=== PATIENT | female | born 1965 | race African-American/Black ===

== ENCOUNTER → 2016-12-18 | Outpatient (CLI) | payer BC ==
[2016-04-19 14:40] VITALS: BP 137/90
--- NOTE | 2016-12-18 14:25 | RAD ---
DATE: 12/18/2016. EXAM: DIGITAL SCREEN BILAT W/CAD HISTORY: Screening. COMPARISON: 06/22/2015. This study was interpreted with the benefit of Computerized Aided Detection (CAD). FINDINGS: Both breasts are heterogeneously dense, limiting the sensitivity of mammography. Numerous benign calcifications are scattered throughout both breasts. No dominant mass or malignant appearing microcalcifications are seen. The axillae are unremarkable. IMPRESSION: No mammographic features suspicious for malignancy. BI-RADS CATEGORY: 2 BENIGN FINDING(S) RECOMMENDED FOLLOW-UP: 12M 12 MONTH FOLLOW-UP PQRS compliance statement: Patient information was entered into a reminder system with a target due date for the next mammogram. Mammography is a sensitive method for finding small breast cancers, but it does not detect them all and is not a substitute for careful clinical examination. A negative mammogram does not negate a clinically suspicious finding and should not result in delay in biopsying a clinically suspicious abnormality. "Our facility is accredited by the [employer] Mammography [employer]."
== END | disposition home or self-care (01) ==
LOC: MAMMO 13:58
PROVIDERS: ATTEND Internal Medicine
DX: Z12.31 Encounter for screening mammogram for malignant neoplasm of breast (principal)
CPT/HCPCS: G0202; 77067

== ENCOUNTER → 2018-12-01 | Outpatient (CLI) | payer BC ==
[2016-04-19 14:40] VITALS: BP 137/90
--- NOTE | 2018-12-01 16:09 | RAD ---
DATE: 12/01/2018 EXAM: MAMMO JONAS SCREENING BILATERAL HISTORY: Routine screening COMPARISON: 10/18/2017 This study was interpreted with the benefit of Computerized Aided Detection (CAD). Breast Density: DENSE The breast parenchyma is dense, which could reduce the sensitivity of mammography. Breast parenchyma level density D. FINDINGS: 2-D and 3-D tomosynthesis imaging was performed in CC and MLO projections. No new or enlarging breast densities are seen. Scattered benign type calcifications are again noted. No suspicious type microcalcifications have developed. IMPRESSION: Stable mammograms without evidence of malignancy. BI-RADS CATEGORY: 2 BENIGN FINDING(S) RECOMMENDED FOLLOW-UP: 12M 12 MONTH FOLLOW-UP PQRS compliance statement: Patient information was entered into a reminder system with a target due date for the next mammogram. Mammography is a sensitive method for finding small breast cancers, but it does not detect them all and is not a substitute for careful clinical examination. A negative mammogram does not negate a clinically suspicious finding and should not result in delay in biopsying a clinically suspicious abnormality. "Our facility is accredited by the [employer] Mammography [employer]."
== END | disposition home or self-care (01) ==
LOC: MAMMO 14:45
PROVIDERS: ATTEND Internal Medicine
DX: Z12.31 Encounter for screening mammogram for malignant neoplasm of breast (principal)
CPT/HCPCS: 77063; 77067

== ENCOUNTER 2019-01-07 10:02 | Emergency (ER) | payer OTHER, BC ==
[~2019-01-07] VITALS: Ht 175.3 cm; Wt 90.7 kg
--- NOTE | 2019-01-07 10:36 | PHYS DOC ---
Past Medical History Past Medical History: Other Additional Past Medical Histor: PAGETS DISEASE OF THE SKULL Past Surgical History: Hysterectomy Alcohol Use: None Drug Use: None Adult General Chief Complaint Chief Complaint: SHOULDER INJURY HPI HPI Patient is a 53 year old female presenting with shoulder injury. She was reaching back to grab a gas pump and she felt a pop and had severe pain radius to the trapezius sharp worse with movement symptoms are getting worse with time Review of Systems Review of Systems Negative for chest pain negative for abdominal pain negative for other symptoms Current Medications Current Medications Current Medications Medications (Trade) Dose Ordered Sig/Christy Start Time Stop Time Status Last Admin Dose Admin Acetaminophen/ Hydrocodone Bitart (Lortab 5/325) 2 tab 1X ONCE 01/07/19 10:45 01/07/19 10:46 DC 01/07/19 10:42 2 TAB Ketorolac Tromethamine (Toradol Im) 30 mg 1X ONCE 01/07/19 10:45 01/07/19 10:46 DC 01/07/19 10:41 30 MG Allergies Allergies Allergies Coded Allergies Type Severity Reaction Last Updated Verified No Known Drug Allergies 01/07/19 No Physical Exam Physical Exam Constitutional: Well developed, well nourished, no acute distress, non-toxic appearance. [] HENT: Normocephalic, atraumatic, bilateral external ears normal, oropharynx moist, no oral exudates, nose normal. [] Eyes: PERRLA, EOMI, conjunctiva normal, no discharge. [] Pulmonary: Normal respiratory effort no increased work of breathing no obvious chest wall trauma Abdomen: Bowel sounds normal, soft, no tenderness, no masses, no pulsatile masses. [] Skin: Warm, dry, no erythema, no rash. [] Back: No tenderness, no CVA tenderness. [] Extremities: There is tenderness to palpation noted over the right trapezius and the right shoulder range of motion is somewhat limited secondary to pain distal function is intact Neurologic: Alert and oriented X 3, normal motor function, normal sensory function, no focal deficits noted. [] Psychologic: Affect normal, judgement normal, mood normal. [] Current Patient Data Vital Signs Vital Signs Date Time Temp Pulse Resp B/P (MAP) Pulse Ox O2 Delivery O2 Flow Rate FiO2 01/07/19 11:24 89 18 162/93 (116) 01/07/19 10:08 98.7 97 Room Air 98.7 EKG EKG [] Radiology/Procedures Radiology/Procedures [] Impressions: Impression: Acromioclavicular joint degenerative changes are present. No suspicious acute process. Electronically signed by: Clifford Fletcher MD (01/07/2019 11:14 AM) [id number] DICTATED and SIGNED BY: CLIFFORD FLETCHER MD DATE: 01/07/19 1113 Course & Med Decision Making Course & Med Decision Making Pertinent Labs and Imaging studies reviewed. 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 Departure Departure Impression: Primary Impression: Shoulder pain Disposition: 01 HOME, SELF-CARE Condition: STABLE Referrals: ROSHAN PITTMAN MD (PCP) Scripts Hydrocodone/Apap 5-325 (NORCO 5-325 TABLET) 1 Each Tablet 1-2 EACH PO PRN Q6HRS PRN for PAIN, #15 as needed for pain Prov: KRISTA AWAD MD 01/07/19 KRISTA AWAD MD Jan 07, 2019 10:36
[2019-01-07] MEDS ORDERED: HYDROcodone/APAP 5/325MG 1 TAB TABLET PO ONE (10:45)
[2019-01-07] MEDS ORDERED: KETOROLAC 60 MG/2 ML VIAL. IM ONE (10:45)
[2019-01-07] MEDS ORDERED: HYDR-3164 PO (10:55)
--- NOTE | 2019-01-07 11:17 | RAD ---
Examination: SHOULDER 2+V RIGHT History: PT STATES WAS PUTTING GAS IN BUS AND FELT POP, HAVING SEVERE ANTERIOR SHOULDER PAIN. Comparison/Correlation: None Findings: Total 3 images of the right shoulder were obtained. Acromioclavicular joint degenerative change with spurring and narrowing is present. Glenohumeral joint is unremarkable. No fracture or bony destruction. Right lung field is unremarkable. Visualized right ribs are unremarkable. Soft tissues are unremarkable. Impression: Acromioclavicular joint degenerative changes are present. No suspicious acute process. Electronically signed by: Clifford Keith MD (01/07/2019 11:14 AM) [id number]
[2019-01-07 11:24] VITALS: BP 162/93
== END 2019-01-07 11:26 | disposition home or self-care (01) ==
LOC: ER 10:02
DX: M25.511 Pain in right shoulder (principal); X50.9XXA Other and unspecified overexertion or strenuous movements or postures, initial encounter; Y93.89 Activity, other specified; Y92.89 Other specified places as the place of occurrence of the external cause; Y99.8 Other external cause status
CPT/HCPCS: 73030; 96372; 99283; J1885

== ENCOUNTER → 2019-06-11 | Outpatient (CLI) | payer BC ==
[~2019-06-11] MED LIST: HYDR-3164 PO; IOHEXOL 300 MG/ML 100ML VIAL. IV ONE
--- NOTE | 2019-06-11 10:51 | RAD ---
CT HEAD WO/W CONTRAST History: Paget's disease. Comparison: May 18, 2016. Technique: Precontrast and postcontrast images were obtained of the head. Coronal reconstructions were performed. 75 mL Omnipaque 300 IV contrast was administered. Exposure: One or more of the following individualized dose reduction techniques were utilized for this examination: 1. Automated exposure control 2. Adjustment of the mA and/or kV according to patient size 3. Use of iterative reconstruction technique. Findings: No intracranial hemorrhage. No mass effect. No hydrocephalus. Extra-axial spaces are unremarkable. No pathologic enhancement. Cavum septum pellucidum et vergae. Mild foci of decreased attenuation within the hemispheric white matter, most often due to chronic microvascular ischemia, unchanged. Imaged orbits are unremarkable. Imaged paranasal sinuses and mastoid air cells are clear. Thickened coarse trabecular left temporal calvarium with regions of lucency extending into the mastoid air cells, along the left greater wing of the sphenoid and left occipital bone, compatible with a Paget's disease. There are regions of increased lucency within the inferior left temporal and occipital calvarium in the region of cortical thickening. No evidence of soft tissue component. Impression: 1. No acute intracranial abnormality. 2. 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 Overall extent of involvement is unchanged compared to 2016. Electronically signed by: Kvng Salinas DO (06/11/2019 10:48 AM) [id number]
== END | disposition home or self-care (01) ==
LOC: CT 09:55
PROVIDERS: ATTEND Internal Medicine
DX: M88.0 Osteitis deformans of skull (principal); M89.58 Osteolysis, other site; R90.82 White matter disease, unspecified
CPT/HCPCS: 70470; Q9967

== ENCOUNTER → 2019-09-17 | Outpatient (CLI) | payer BC ==
[~2019-09-17] MED LIST changes: -IOHEXOL 300 MG/ML 100ML VIAL. IV ONE
--- NOTE | 2019-09-17 09:40 | RAD ---
EXAM: Cervical spine, 3 views per HISTORY: Pain. COMPARISON: None. FINDINGS: 3 views of the cervical spine are obtained. There is degenerative endplate remodeling with disc space narrowing at C5-C6 and C6-C7, and to a lesser extent, C3-C4. There is no fracture or significant listhesis. IMPRESSION: 1. Multilevel degenerative change, described above. 2. No acute osseous finding. Electronically signed by: Dasha James MD (09/17/2019 9:37 AM) [place] [id number]
== END | disposition home or self-care (01) ==
LOC: RAD 08:09
PROVIDERS: ATTEND Internal Medicine
DX: M47.812 Spondylosis without myelopathy or radiculopathy, cervical region (principal); M48.02 Spinal stenosis, cervical region
CPT/HCPCS: 72040

== ENCOUNTER → 2019-09-30 | Outpatient (CLI) | payer BC ==
[~2019-09-30] MED LIST changes: +AMLO5TAB10 PO; +ATOR20TA58 PO; +CYCL5TAB PO; +GADOTERATE 7.5 MMOL/15ML VIAL. IVP ONE; +MECL25TA3 PO; +NAPR500T8 PO
--- NOTE | 2019-09-30 17:19 | KCIC ---
MRI of the Brain without and with Contrast 09/30/2019 Clinical History: Dizziness and chronic headaches. Technique: Unenhanced T1-weighted sagittal and axial and FLAIR, T2-weighted, gradient echo and diffusion-weighted axial images of the brain were obtained. After the intravenous administration of 18 cc of DOTAREM, enhanced T1-weighted axial and coronal images of the brain were obtained. Findings: Comparison is made to patient's CT scan of the head dated 06/11/2019. The ventricles and sulci are within normal limits in size and configuration. No area of significant abnormal signal intensity is seen involving the brain parenchyma. No abnormal area of contrast enhancement is seen. No extra-axial fluid collection is noted. There is no MRI evidence of acute ischemia/infarction. Mild mucosal thickening in seen scattered throughout the ethmoid air cells bilaterally. There is a moderate sized right mastoid effusion. Normal flow voids are seen within the major vascular structures surrounding the brain parenchyma. Cortical thickening and heterogeneity of the left temporal bone is again seen consistent with the patient's history of Paget's disease. Impression: No acute parenchymal abnormality is seen. Electronically signed by: Keo Cardoso MD (09/30/2019 5:16 PM) [email or web address]
== END | disposition home or self-care (01) ==
LOC: KCIC MRI 13:06
PROVIDERS: ATTEND Internal Medicine
DX: M88.0 Osteitis deformans of skull (principal); M54.81 Occipital neuralgia; Z90.710 Acquired absence of both cervix and uterus; Z79.899 Other long term (current) drug therapy
CPT/HCPCS: 70553; A9575

== ENCOUNTER → 2020-01-22 | Outpatient (CLI) | payer BC ==
[~2020-01-22] MED LIST changes: +CONTRAST GIVEN. MC PRN; -GADOTERATE 7.5 MMOL/15ML VIAL. IVP ONE; +IOHEXOL 240 MG/ML 50ML VIAL. PO ONE; +IOHEXOL 300 MG/ML 100ML VIAL. IV ONE; +MECL-75 PO; -MECL25TA3 PO
--- NOTE | 2020-01-22 17:43 | RAD ---
CT abdomen with contrast Clinical indications: Upper abdominal pain. TECHNIQUE: After IV infusion of 65 cc Omnipaque 300, helical CT scanning of the abdomen was performed from the hemidiaphragms down to the iliac crest. GI contrast was administered per mouth. PQRS compliance Statement One or more of the following individualized dose reduction techniques were utilized for this study: 1. Automated exposure control 2. Adjustment of the mA and/or kV according to patient size 3. Use of iterative reconstruction technique COMPARISON: None available. FINDINGS: There is mild diffuse fatty infiltration of the liver. No hepatic mass is seen. The spleen is not enlarged. No pancreatic mass is seen. The gallbladder is surgically absent. Common bile duct measures 6 cm in caliber which is normal. No adrenal mass is seen. Both kidneys are normal without hydronephrosis or proximal hydroureter. No focal aneurysmal dilatation of the abdominal aorta is seen. No enlarged abdominal lymphadenopathy is seen. No obstructive bowel pattern is seen. The appendix is only partially visualized. What is visualized appears normal. There is segmental wall thickening of the colon including the splenic flexure and descending colon and the mid transverse colon. Entire colon is seen in this study. This could be due to segmental colitis. No free air or free fluid or mesenteric edema is seen. No lung base consolidation is seen. No lytic process is seen. IMPRESSION: There is segmental wall thickening of the colon which may be seen with colitis. Electronically signed by: Anjum Abdi MD (01/22/2020 5:40 PM) [id number]
== END | disposition home or self-care (01) ==
LOC: CT 15:46
PROVIDERS: ATTEND Internal Medicine
DX: K76.0 Fatty (change of) liver, not elsewhere classified (principal); Z90.49 Acquired absence of other specified parts of digestive tract
CPT/HCPCS: 74160; Q9966; Q9967

== ENCOUNTER → 2020-05-03 | Outpatient (CLI) | payer BC ==
[~2020-05-03] MED LIST changes: -CONTRAST GIVEN. MC PRN; -IOHEXOL 240 MG/ML 50ML VIAL. PO ONE; -IOHEXOL 300 MG/ML 100ML VIAL. IV ONE
--- NOTE | 2020-05-03 16:42 | RAD ---
BILATERAL SCREENING MAMMOGRAM, 3-D History: Routine screening. Comparison: 06/22/2015, 12/29/2012, 12/18/2016, 12/01/2018. Technique: MLO and CC digital tomosynthesis (3D) images obtained. Radiologist reviewed these images on dedicated workstation. Findings: Breast Tissue Density C : The breasts are heterogeneously dense, which may obscure small masses. Multiple There are no dominant masses, suspicious microcalcifications, or architectural distortion. IMPRESSION: No mammographic evidence of malignancy. Recommend routine screening. BI-RADS category 1: Negative. The images were reviewed with computer-aided detection. Patient information is entered into reminder system with a target due date for the next screening mammogram. Mammography is the most sensitive method for finding small breast cancers, but it does not detect them all and is not a substitute for careful clinical examination. A negative mammogram does not negate a clinically suspicious finding and should not result in delay in biopsying a clinically suspicious abnormality. "Our facility is accredited by the [employer] Mammography [employer]." Electronically signed by: Clifford Keith MD (05/03/2020 4:39 PM) [id number]
== END ==
LOC: MAMMO 13:11
PROVIDERS: ATTEND Internal Medicine
DX: Z12.31 Encounter for screening mammogram for malignant neoplasm of breast (principal)
CPT/HCPCS: 77063; 77067